=== PATIENT | male | born 1995 ===

== ENCOUNTER 2016-12-21 02:23 | Emergency (ER) | payer SELFPAY ==
[2016-12-21] MEDS ORDERED: NOREPINEPHRINE BITARTRATE INJ/PF 4 MG/4 ML SDV IV ONE (02:34)
--- NOTE | 2016-12-21 02:42 | ER Document Report ---
ED General - General Chief Complaint: Cardiac Arrest Stated Complaint: POST ARREST Cannot obtain history due to: Unstable vital signs Notes: Patient is a 21-year-old male who presents by EMS after being found unconscious , without a pulse eye friends after drinking heavily at a [employer]. He was provided bystander CPR on scene. When EMS arrived on scene he was in asystolic arrest. They were able to have return of circulation after a total of 20 additional minutes of ACLS protocols. No additional history can be obtained secondary to clinical situation at time of arrival Past Medical History - General Information source: Emergency Med Personnel Cannot obtain history due to: Unstable vital signs - Social History Smoking Status: Unknown if Ever Smoked Family History: Reviewed & Not Pertinent Review of Systems - Review of Systems -: Yes ROS unobtainable due to patient's medical condition Physical Exam - Vital signs Vitals: Pulse Ox 92 12/21/16 02:25 Notes: PHYSICAL EXAMINATION: GENERAL: Patient is obtunded, unresponsive, GCS 3T HEAD: Atraumatic, normocephalic. EYES: Pupils are 6 mm fixed and dilated. No response to light. No corneal reflex ENT: ET tube is in place. Blood in vomitus is in the oropharynx. NECK: Normal range of motion, supple without lymphadenopathy LUNGS: Breath sounds clear to auscultation bilaterally and equal. No wheezes rales or rhonchi. HEART: Regular rate and rhythm without murmurs ABDOMEN: Soft, nontender, normoactive bowel sounds. No guarding, no rebound. No masses appreciated. EXTREMITIES: Normal range of motion, no pitting or edema. No cyanosis. NEUROLOGICAL: No focal neurological deficits. Moves all extremities spontaneously and on command. PSYCH: Normal mood, normal affect. SKIN: Warm, Dry, normal turgor, no rashes or lesions noted. Course - Re-evaluation Re-evalutation: 12/21/16 02:40 Patient arrives after being found in an asystolic arrest with 20 minutes of on scene bystander CPR. Patient has lost pulses 3 times in route to the hospital with a PEA arrest each time. On arrival, patient has a normal sinus rhythm and is hypotensive with initial systolics of 86/46. Initial oxygen saturation was with a Arvin tube in place were 86%. Patient had profuse vomitus and blood in the oral airway. Initial assessment demonstrates findings very concerning for clinical brain . Patient has no response to noxious stimuli in any extremity. His pupils are 6 mm fixed and dilated bilaterally. He has no corneal response. He has no gag. No cough. He has no spontaneous respirations. I am very concerned that in the setting of a likely hypoxemic arrest secondary to aspiration patient has unfortunately developed brain . I did exchange on his Arvin airway for a 7.5 ET tube which did improve patient' s oxygen saturations up to 96% with a PEEP of 1000% FiO2. Given his hypotension , he will be started on norepinephrine infusion and 1 L of saline will be started. Patient is not a candidate for cooling given his initial rhythm was asystole and he is currently hemodynamically unstable. He will be sent for a CT perfusion scan of the brain as well as a CT of the cervical spine. 12/21/16 03:18 Chest x-ray demonstrates appropriate ET tube position. Large amount of aspiration in the right lung trace in the left. Results of the CTA of the head as well as CT of cervical spine are pending. Patient has continued to be hemodynamically unstable and norepinephrine has been titrated up to 12 at this time. 12/21/16 03:59 Patient has required norepinephrine to be uptitrated to 30 and yet maintains maps less than 65. Will start vasopressin. A right subclavian central line was placed without difficulty. Chest x-ray afterwards demonstrates no evidence of pneumothorax. Worsening bilateral pulmonary edema. I suspect ARDS at this time. PEEP has been increased to 16, fio2 is 100% yet remains at 78% 12/21/16 04:22 I discussed this case with the c consultant Dr. Steiner and [facility] who agrees with current management and states that he likewise suspect the patient will proceed to . Patient's oxygen saturation remains at 78%. He is maxed out on vasopressin and norepinephrine and currently has maps at 67. Patient has been accepted for transfer at this time although I do not know that he will be acceptable for transport. 12/21/16 05:13 At 0453 patient began to have bradycardia and rapidly lost his pulse. He had had a down trend in his oxygen saturations to her they were consistently in remaining in the low 70s. Compressions were initiated without return of pulse. Compressions were only continued for a total of 2 minutes as I strongly believe this is futile care as patient is critically ill with severe hypoxemic brain injury, a clinical exam very concerning for brain , diffuse pulmonary edema consistent with ARDS. Time of was called at 0455. I have been contacted the patient's father on 3 separate occasions and have contacted the local Police Department in [place] to try to get a hold of his father who is the only listed family contact. 12/21/16 05:49 I have discussed the patient's with his father as well as his chain of command. - Vital Signs Vital signs: Temp Pulse Resp BP Pulse Ox 9 L 88/28 L 68 L 12/21/16 04:48 12/21/16 04:48 12/21/16 04:48 - Laboratory Result Diagrams: 12/21/16 02:25 12/21/16 02:25 Laboratory results interpreted by me: 12/21/16 12/21/16 12/21/16 02:25 02:25 02:25 WBC 14.3 H MCV 101 H MCHC 30.2 L RDW 14.3 H Seg Neuts % (Manual) 21 L Band Neutrophils % 9 H Lymphocytes % (Manual) 53 H Abs Lymphs (Manual) 7.9 H Abs Monocytes (Manual) 1.7 H Abs Basophils (Manual) 0.3 H Sodium 146.0 H Potassium 5.3 H Carbon Dioxide 14 L Anion Gap 32 H Creatinine 2.26 H Est GFR ( Amer) 45 L Est GFR (Non-Af Amer) 37 L Glucose 424 H* Lactic Acid 16.7 H AST 381 H ALT 424 H - Diagnostic Test Radiology reviewed: Image reviewed, Reports reviewed Procedures - Central Line Right Subclavian Time completed: 03:30 Consent obtained: No - emergent Central line pre-insertion: Chloraprep applied Central line lumen type: Triple Ultrasound guided: No CM at insertion site: 16 Line secured with sutures: Yes Central line post-insertion: Blood return from lumens, Biopatch applied, Sutured , Sterile dressing applied, Position confirmed w/ CXR Number of attempts: 1 Complications: No - Intubation Orotracheal Airway evaluation: Normal anatomy Mallampati Classification: Class 1 Intubation method: Orotracheal Blade type: Rich Blade size: 4 ETT size: 7.5 ETT secured at: Lips ETT secured at (cm): 23 Breath Sounds after Intubation: Equal End tidal CO2 confirmed: Yes Ventilator settings: SIMV Tidal volume: 500 FiO2: 100 Respirations: 16 PEEP: 5 Post Intubation Xray: Yes Intubation Complications: No complications Critical Care Note - Critical Care Note Total time excluding time spent on procedures (mins): 140 Comments: Critical care time spent obtaining history from patient or surrogate, discussions with consultants, development of treatment plan with patient or surrogate, evaluation of patient's response to treatment, examination of patient , ordering and performing treatments and interventions, ordering and review of laboratory studies, re-evaluation of patient's condition, ordering and review of radiographic studies and review of old charts Discharge - Discharge Clinical Impression: Respiratory arrest, ARDS (adult respiratory distress syndrome), Cardiac arrest , Cerebral edema, Neurogenic shock Disposition:
[2016-12-21] MEDS ORDERED: NORMAL SALINE 1000 ML 1,000 ML IV ONE ×4 (02:43→06:58)
[2016-12-21 02:53] LABS: HEMATOCRIT 48.2 % (37.9-51.0); HEMOGLOBIN 14.6 g/dL (13.5-17.0); RED BLOOD COUNT 4.76 10^6/uL (4.35-5.55); WHITE BLOOD COUNT 14.3 10^3/uL (4.0-10.5)
[2016-12-21 02:54] LABS: MEAN CORPUSCULAR HEMOGLOBIN 30.6 pg (27.0-33.4); MEAN CORPUSCULAR HGB CONC 30.2 g/dL (32.0-36.0); MEAN CORPUSCULAR VOLUME 101 fl (80-97); RED CELL DISTRIBUTION WIDTH 14.3 % (11.5-14.0)
[2016-12-21 02:59] LABS: ALANINE AMINOTRANSFERASE 424 U/L (21-72); ALBUMIN 4.1 g/dL (3.5-5.0); ALCOHOL 78 mg/dL (NONE DETECTED); ALKALINE PHOSPHATASE 92 U/L (38-126); ASPARTATE AMINO TRANSFERASE 381 U/L (17-59); BILIRUBIN,DIRECT 0.4 mg/dL (0.0-0.4); BILIRUBIN,TOTAL 0.5 mg/dL (0.2-1.3); BLOOD UREA NITROGEN 12 mg/dL (7-20); CALCIUM 9.2 mg/dL (8.4-10.2); CARBON DIOXIDE 14 mmol/L (22-30); CHLORIDE 100 mmol/L (98-107); CREATININE RESULT 2.26 mg/dL (0.52-1.25); POTASSIUM 5.3 mmol/L (3.6-5.0); TOTAL PROTEIN 6.5 g/dL (6.3-8.2)
[2016-12-21 03:14] LABS: GLUCOSE 424 mg/dL (75-110)
[2016-12-21 03:19] LABS: ANION GAP 32 (5-19); HGB HCT DIFFERENCE -4.4
[2016-12-21 03:28] LABS: BAND NEUTROPHILS % (MANUAL) 9 % (3-5); BASOPHILS % (MANUAL) 2 % (0-2); EOSINOPHILS % (MANUAL) 1 % (0-6); LYMPHOCYTES % (MANUAL) 53 % (13-45); TOTAL CELLS COUNTED 100
[2016-12-21 03:33] LABS: OVALOCYTES 1+; POIKILOCYTOSIS SLIGHT
[2016-12-21] MEDS ORDERED: DEXTROSE 5%-WATER 250 ML with VASOPRESSIN 100 UNIT IV PRN ×2 (03:49)
[2016-12-21] MEDS ORDERED: VASOPRESSIN INJ 20 UNIT/1 ML VIAL ONE ×2 (03:51→03:54)
[2016-12-21 06:15] VITALS: BP 80/27
[2016-12-21] MEDS ORDERED: DEXTROSE 5%-WATER 250 ML with NOREPINEPHRINE BITARTRATE 4 MG IV PRN ×2 (06:58)
--- NOTE | 2016-12-21 10:09 | EKG REPORT ---
SEVERITY:- ABNORMAL ECG - SINUS RHYTHM BORDERLINE REPOL ABNORMALITY, DIFFUSE LEADS PROLONGED QT INTERVAL : Confirmed by: Spike Henderson MD 21-Dec-2016 10:08:23
== END 2016-12-21 07:00 | disposition expired ==
LOC: ER 02:23
PROC: 0BH17EZ Insertion of Endotracheal Airway into Trachea, Via Natural or Artificial Opening (ICD-10-PCS; principal; 2016-12-21)
PROC: 05H533Z Insertion of Infusion Device into Right Subclavian Vein, Percutaneous Approach (ICD-10-PCS; 2016-12-21)
DX: I46.9 Cardiac arrest, cause unspecified (principal); R09.2 Respiratory arrest; J80 Acute respiratory distress syndrome; G93.6 Cerebral edema; R57.8 Other shock
CPT/HCPCS: 93005; 99291; 99292; 96374; 96375; 36415; 80307; 83605; 85025; 80053; 71010; 70496; 72125; 93010; 31500; 36556; C1751; J3490 ×2; J7060